=== PATIENT | male | born 1990 | race Hispanic/Latino ===

== ENCOUNTER 2018-04-06 17:02 | Emergency (ER) | payer OTHER ==
[2018-04-06 17:08] VITALS: BP 123/73; PULSE 81; RESP 16; O2SAT 97
--- NOTE | 2018-04-06 17:57 | ED PDOC ---
HPI: Dental Pain/Injury Time Seen by Provider: 04/06/18 17:10 Chief Complaint (Nursing): Dental Pain Chief Complaint (Provider): Dental Pain History Per: Patient History/Exam Limitations: no limitations Onset/Duration Of Symptoms: Other (x 3 months) Current Symptoms Are (Timing): Still Present Additional Complaint(s): 27-year-old male, with a PMHx of depression, anxiety, schizophrenia and bipolar disorder, presents to ED complaining of right upper side toothache for 3 months. Patient reports on onset of symptoms, he saw dentist and had 4 fillings placed, but never followed up again. Since fillings he has been having chronic pain that sometimes produces a headache (none now). Patient requesting a refill of ibuprofen 800 mg. No other complaints at this time. (-) dizziness, (-) visual changes, (-) fever, (-) chills, (-) cough, (-) shortness of breath, (-) ear pain, (-) throat pain (-) weakness/numbness (-) drooling. PMD: Sebastian Llamas Past Medical History Reviewed: Historical Data, Nursing Documentation, Vital Signs Vital Signs: Last Vital Signs Temp 97.9 F 04/06/18 17:05 Pulse 81 04/06/18 17:05 Resp 16 04/06/18 17:05 BP 123/73 04/06/18 17:05 Pulse Ox 97 04/06/18 17:05 - Medical History PMH: Anxiety, Bipolar Disorder, Depression, Schizophrenia - Surgical History Surgical History: No Surg Hx - Family History Family History: States: Unknown Family Hx - Social History Current smoker - smoking cessation education provided: No Alcohol: Social Drugs: Denies - Home Medications Home Medications: Ambulatory Orders Medication Instructions Recorded Ibuprofen [Motrin Tab] 800 mg PO Q8 #21 tab 04/06/18 - Allergies Allergies/Adverse Reactions: Allergies Allergy/AdvReac Type Severity Reaction Status Date / Time dust Allergy SHORTNESS Uncoded 04/06/18 17:05 OF BREATH Review of Systems ROS Statement: Except As Marked, All Systems Reviewed And Found Negative Constitutional: Negative for: Chills ENT: Positive for: Other (toothache). Negative for: Ear Pain, Throat Pain Respiratory: Negative for: Cough, Shortness of Breath Neurological: Positive for: Headache Physical Exam - Reviewed Nursing Documentation Reviewed: Yes Vital Signs Reviewed: Yes - Physical Exam Appears: Positive for: Well, Non-toxic, No Acute Distress Head Exam: Positive for: NORMOCEPHALIC Skin: Positive for: Normal Color, Warm, Dry Eye Exam: Positive for: EOMI, PERRL ENT: Positive for: Pharynx Is (clear, uvula midline), TM Is/Are (nonbulging and nonerythematous bilaterally), Other ((-) Dental Tenderness, (-) Gingival inflammation or erythema. Airway patent (-) stridor.). Negative for: Sinus Pain /Drainage, Nasal Congestion, Pharyngeal Erythema, Tonsillar Exudate, Tonsillar Swelling Neck: Positive for: Painless ROM, Supple Cardiovascular/Chest: Positive for: Regular Rate, Rhythm Respiratory: Positive for: Normal Breath Sounds (Speaking in full sentences, respirations even and nonlabored. ) Neurologic/Psych: Positive for: Alert, Oriented (x3), Gait (steady in ED) - ECG O2 Sat by Pulse Oximetry: 97 (RA) Pulse Ox Interpretation: Normal Medical Decision Making Medical Decision Making: Time: 17:31 Impression: Dental Pain, Medication Refill Plan: - Motrin Tab 800 mg PO - Re-evaluation 1824 On re-evaluation, patient reports improvement of symptoms. On exam, patient remains AAOx3, in no acute distress. On exam, neck is supple, lungs CTA, cardiac RRR, neuro exam shows no focal findings. VSS, stable for discharge. Diagnostic results d/w the patient in great detail. Dx of toothache, medication refill d/w the patient. Based on history, exam and diagnostic results plan will be for discharge and outpatient dental follow up. Advised to follow up with primary care physician/dental in 1-2 days without fail. Advised to take medication as prescribed. Return to the emergency room at any time for any new or worsening symptoms. Patient states he fully agrees with and understands discharge instructions. States that he agrees with the plan and disposition. Verbalized and repeated discharge instructions and plan. I have given the patient opportunity to ask any additional questions. Scribe Attestation: Documented by Kash Stewart, acting as a scribe for Nakita Moulton PA-C. Provider Scribe Attestation: All medical record entries made by the Scribe were at my direction and personally dictated by me. I have reviewed the chart and agree that the record accurately reflects my personal performance of the history, physical exam, medical decision making, and the department course for this patient. I have also personally directed, reviewed, and agree with the discharge instructions and disposition. Disposition - Clinical Impression Clinical Impression: Chronic dental pain, Medication refill, Headache - Patient ED Disposition Is Patient to be Admitted: No Counseled Patient/Family Regarding: Studies Performed, Diagnosis, Need For Followup, Rx Given - Disposition Disposition: Routine/Home Disposition Time: 18:29 Condition: STABLE Additional Instructions: FOLLOW UP WITH DENTIST IN 1-2 DAYS WITHOUT FAIL. RETURN TO ED WITH ANY NEW OR WORSENING SYMPTOMS. Prescriptions: Ibuprofen [Motrin Tab] 800 mg PO Q8 #21 tab Instructions: Headache, Adult, Dental Pain Forms: [facility] (Bulgarian) Print Language: GUINEAN - POA Present On Arrival: None
[2018-04-06 18:42] VITALS: TEMP 98.1
== END 2018-04-06 18:41 | disposition home or self-care (01) ==
LOC: H.ER 17:02
DX: Z76.0 Encounter for issue of repeat prescription (principal); R51 Headache; K08.89 Other specified disorders of teeth and supporting structures

== ENCOUNTER 2018-04-07 21:23 | Emergency (ER) | payer OTHER ==
[2018-04-07 21:49] VITALS: PULSE 84; RESP 18; TEMP 98; O2SAT 99
[2018-04-07] MEDS ORDERED: Bacitracin OINT 15GM TOP STA (21:54)
[2018-04-07] MEDS ORDERED: Bacitracin 500 Units/gm Oint Foilpak UD ONE (21:58)
--- NOTE | 2018-04-07 22:05 | ED PDOC ---
HPI: Head Injury Time Seen by Provider: 04/07/18 21:50 Chief Complaint (Nursing): Abnormal Skin Integrity Chief Complaint (Provider): Abnormal Skin Integrity History Per: Patient History/Exam Limitations: no limitations Onset/Duration Of Symptoms: Hrs (earlier tonight) Additional Complaint(s): Patient is a 27 y/o male with no significant past medical history presents to the ED for evaluation of a scalp wound. Patient reports that earlier tonight he was walking through a doorway when he struck his head against a metal piece of the frame. He applied a bandage and bleeding was controlled prior to arrival. Patient denies any loss of consciousnesses, headache, dizziness, and presents to ED for wound evaluation. He has no other complaints at present. PMD: Sebastian Horowitz Past Medical History Reviewed: Historical Data, Nursing Documentation, Vital Signs Vital Signs: Last Vital Signs Temp 98 F 04/07/18 21:47 Pulse 84 04/07/18 21:47 Resp 18 04/07/18 21:47 BP Pulse Ox 99 04/07/18 21:47 - Medical History PMH: Anxiety, Bipolar Disorder, Depression, Schizophrenia - Surgical History Surgical History: No Surg Hx - Family History Family History: States: Unknown Family Hx - Social History Alcohol: Social Drugs: Denies - Immunization History Hx Tetanus Toxoid Vaccination: Yes (UTD) - Home Medications Home Medications: Ambulatory Orders Medication Instructions Recorded Ibuprofen [Motrin Tab] 800 mg PO Q8 #21 tab 04/06/18 Bacitracin OINT 1 applic TP BID #1 tube 04/07/18 - Allergies Allergies/Adverse Reactions: Allergies Allergy/AdvReac Type Severity Reaction Status Date / Time dust Allergy SHORTNESS Uncoded 04/06/18 17:05 OF BREATH Review of Systems ROS Statement: Except As Marked, All Systems Reviewed And Found Negative Constitutional: Negative for: Fever Skin: Positive for: Other (scalp wound) Neurological: Negative for: Headache, Dizziness, Other (loss of consciousness ) Physical Exam - Reviewed Nursing Documentation Reviewed: Yes Vital Signs Reviewed: Yes - Physical Exam Comments: GENERALIZED APPEARANCE:Patient is awake, oriented x3, resting comfortably, in no acute distress. SKIN: Warm, dry HEAD: 1cm x 1cm superficial skin avulsion to the posterior aspect of the frontal scalp. (-)active bleeding, (-)tenderness, (-)palpably bony deformity (- ) swelling (-) hematoma EYES: (-) conjunctival pallor. ENMT: Mucous membranes moist. Airway patent (-) stridor NECK:Supple, FROM (-) tenderness, (-) stiffness, (-) lymphadenopathy. CHEST AND RESPIRATORY: (-) rales, (-) rhonchi, (-) wheezes; breath sounds equal bilaterally. Respirations even and nonlabored. HEART AND CARDIOVASCULAR: (-) irregularity; (-) murmur, (-) gallop. EXTREMITIES: (-) deformity NEURO AND PSYCH: Mental status as above. scale balancer: (-) nystagmus; Pupils EOMI and painless, (-) facial asymmetry; (-) aphasia; tongue and uvula midline. Strength symmetric. Gait: steady. Speech clear. - ECG O2 Sat by Pulse Oximetry: 99 (RA) Pulse Ox Interpretation: Normal Medical Decision Making Medical Decision Making: Time: 21:50 Initial Impression: skin avulsion of scalp Initial Plan: --wound closure not required at this time --wound irrigated with normal saline; bacitracin applied and wound dressing placed Upon provider evaluation patient is medically stable, and requires no further treatment in the ED at this time. Vitals stable. Patient will be discharged home with Rx for bacitracin. Patient educated on wound care. Counseling was provided and all questions were answered regarding diagnosis and need for follow up with PMD. There is agreement to discharge plan. Return if symptoms persist or worsen. Patient states he fully agrees with and understands discharge instructions. States that he agrees with the plan and disposition. Verbalized and repeated discharge instructions and plan. I have given the patient opportunity to ask any additional questions. Scribe Attestation: Documented by Cuba Gilliam, acting as a scribe for Nakita Moulton PA-C Provider Scribe Attestation: All medical record entries made by the Scribe were at my direction and personally dictated by me. I have reviewed the chart and agree that the record accurately reflects my personal performance of the history, physical exam, medical decision making, and the department course for this patient. I have also personally directed, reviewed, and agree with the discharge instructions and disposition. Disposition - Clinical Impression Clinical Impression: Skin avulsion, Superficial injury of scalp - Patient ED Disposition Is Patient to be Admitted: No Counseled Patient/Family Regarding: Diagnosis, Need For Followup, Rx Given - Disposition Disposition: Routine/Home Disposition Time: 21:54 Condition: STABLE Additional Instructions: FOLLOW UP WITH CLINIC IN 1-2 DAYS WITHOUT FAIL. RETURN TO ED WITH ANY NEW OR WORSENING SYMPTOMS. KEEP WOUND CLEAN AND DRY. Prescriptions: Bacitracin OINT 1 applic TP BID #1 tube Instructions: Wound Care, Minor Head Injury (DC) Forms: [facility] (Mohawk) Print Language: MALDIVIAN - POA Present On Arrival: Falls Or Trauma
[2018-04-07] MEDS ORDERED: Bacitracin 500 Units/gm Oint Foilpak UD TOP STA (22:09)
[2018-04-07 22:26] VITALS: BP 117/74
== END 2018-04-07 22:05 | disposition home or self-care (01) ==
LOC: H.ER 21:23
DX: S01.00XA Unspecified open wound of scalp, initial encounter (principal); W22.8XXA Striking against or struck by other objects, initial encounter; Y92.89 Other specified places as the place of occurrence of the external cause

== ENCOUNTER 2018-04-17 02:02 | Emergency (ER) | payer MEDICAID ==
--- NOTE | 2018-04-17 03:18 | ED PDOC ---
HPI: Dental Pain/Injury Time Seen by Provider: 04/17/18 02:58 Chief Complaint (Nursing): Dental Pain Chief Complaint (Provider): toothache History Per: Patient History/Exam Limitations: no limitations Onset/Duration Of Symptoms: Days (1 month), Waxing/Waning Current Symptoms Are (Timing): Still Present Dental: 1 - pain Additional Complaint(s): 27 y/o male presents for evaluation of right upper toothache x 1 month. Patient states the pain was so intense that tonight around 1:30 he took 6 200mg Ibuprofen tablets, and then 20 minutes later took 4 more. Patient states 10 minutes after that he took 13 aspirin 325mg tablets due to persistent pain. Patient states he was not trying to hurt himself, states he was just trying to take the pain away. Now notes nausea and abdominal discomfort. Patient with poor insight; states he has been off of his psychiatric medications for one week due to insurance issues. Denies fever, vomiting, chest pain, shortness of breath, suicidal/homicidal ideations. Past Medical History Reviewed: Historical Data, Nursing Documentation, Vital Signs Vital Signs: Last Vital Signs Temp 97.6 F 04/17/18 02:47 Pulse 79 04/17/18 02:47 Resp 16 04/17/18 02:47 BP 124/81 04/17/18 02:47 Pulse Ox 96 04/17/18 02:47 - Medical History PMH: Anxiety, Bipolar Disorder, Depression, Schizophrenia - Surgical History Surgical History: No Surg Hx - Family History Family History: States: Unknown Family Hx - Immunization History Hx Tetanus Toxoid Vaccination: Yes (UTD) - Home Medications Home Medications: Ambulatory Orders Medication Instructions Recorded Ibuprofen [Motrin Tab] 800 mg PO Q8 #21 tab 04/06/18 Bacitracin OINT 1 applic TP BID #1 tube 04/07/18 - Allergies Allergies/Adverse Reactions: Allergies Allergy/AdvReac Type Severity Reaction Status Date / Time dust Allergy SHORTNESS Uncoded 04/06/18 17:05 OF BREATH Review of Systems ROS Statement: Except As Marked, All Systems Reviewed And Found Negative ENT: Positive for: Mouth Pain Gastrointestinal: Positive for: Abdominal Pain Physical Exam - Reviewed Nursing Documentation Reviewed: Yes Vital Signs Reviewed: Yes - Physical Exam Appears: Positive for: Well, Non-toxic, No Acute Distress Head Exam: Positive for: ATRAUMATIC, NORMAL INSPECTION, NORMOCEPHALIC Skin: Positive for: Normal Color Eye Exam: Positive for: Normal appearance ENT: Positive for: TM Is/Are (Ear bud noted stuck in right EAC; no odor, drainage. (Patient states he thinks one may have gotten stuck there a few days ago as he has had muffled hearin gin that ear). Left TM and EAC clear), Other ( tender right second premolar; no gum erythema, tenderness, abscess). Negative for: Pharyngeal Erythema, Tonsillar Exudate, Tonsillar Swelling Cardiovascular/Chest: Positive for: Regular Rate, Rhythm Respiratory: Positive for: Normal Breath Sounds Gastrointestinal/Abdominal: Positive for: Normal Exam Back: Positive for: Normal Inspection Extremity: Positive for: Normal ROM Neurologic/Psych: Positive for: Alert, Oriented, Mood/Affect (bizarre, poor insight) - Laboratory Results Result Diagrams: 04/17/18 03:35 04/17/18 03:35 - ECG O2 Sat by Pulse Oximetry: 96 - Progress ED Course And Treament: labs, ekg Poison control contacted by RN; recommends supportive GI care at this time, will follow up with labs 3:30 Patient resting comfortably, no complaints currently Will repeat 2 hr salicylate level Disposition - Clinical Impression Clinical Impression: Toothache, Bizarre behavior, Overdose - Disposition Disposition Time: 06:00 Condition: STABLE Patient Signed Over To: Ricky Fortune Handoff Comments: pending repeat salicylate level, re-eval, crisis eval
[2018-04-17 04:03] LABS: EOS # 0.1 K/uL (0.0-0.7); EOS % 2.2 % (0.0-4.0); HEMOGLOBIN 13.7 g/dL (12.0-18.0); LYMPH # 2.5 K/uL (1.0-4.3); LYMPH % 51.8 % (20.0-40.0); MEAN CELL VOLUME 81.1 fl (80.0-94.0); MEAN CORPUSCULAR HEMOGLOBIN 26.7 pg (27.0-31.0); MEAN CORPUSCULAR HGB CONC 32.9 g/dL (33.0-37.0); MEAN PLATELET VOLUME 7.9 fl (7.2-11.7); MONO # 0.5 K/uL (0.0-0.8); MONO % 10.8 % (0.0-10.0); NEUT # 1.7 K/uL (1.8-7.0); NEUT % 34.2 % (50.0-75.0); NRBC % 0.1 % (0.0-0.0); RBC 5.13 Mil/uL (4.40-5.90); RED CELL DISTRIBUTION WIDTH 14.3 % (11.5-14.5); WHITE BLOOD COUNT 4.9 K/uL (4.8-10.8)
[2018-04-17 04:09] LABS: ACETAMINOPHEN < 10.0 ug/ml (10.0-30.0)
[2018-04-17 04:11] LABS: ALB/GLOB RATIO 1.3 (1.0-2.1); ALBUMIN 4.2 g/dL (3.5-5.0); ALT/SGPT 42 U/L (21-72); AST/SGOT 31 U/L (17-59); BLOOD UREA NITROGEN 16 mg/dl (9-20); GFR AFRICAN-AMERICAN > 60; GFR NON-AFRICAN AMERICAN > 60
[2018-04-17 04:12] LABS: PARTIAL THROMBOPLASTIN TIME 31.9 Seconds (25.6-37.1); PROTHROMBIN TIME 11.5 Seconds (9.8-13.1)
[2018-04-17 04:24] LABS: BARBITURATES, UR NEGATIVE (NEGATIVE); BENZODIAZEPINES, UR NEGATIVE (NEGATIVE); OPIATES, UR NEGATIVE (NEGATIVE); PHENCYCLIDINE, UR NEGATIVE (NEGATIVE)
[2018-04-17 05:54] VITALS: TEMP 98
[2018-04-17 06:27] LABS: URINE BACTERIA RARE (<OCC); URINE BILIRUBIN NEGATIVE (NEGATIVE); URINE BLOOD NEGATIVE (NEGATIVE); URINE CLARITY CLOUDY (Clear); URINE COLOR YELLOW (YELLOW); URINE GLUCOSE (UA) NEG (Normal); URINE LEUKOCYTE ESTERASE NEG Leu/uL (Negative); URINE PROTEIN NEGATIVE (NEGATIVE); URINE UROBILINOGEN 0.2-1.0 mg/dL (0.2-1.0)
--- NOTE | 2018-04-17 06:30 | ED PDOC ---
- Laboratory Results Result Diagrams: 04/17/18 03:35 04/17/18 03:35 - ECG O2 Sat by Pulse Oximetry: 99 Pulse Ox Interpretation: Normal - Progress ED Course And Treament: 0600 Continuation of care by this provider in conjunction with [facility]. I have reviewed all notations and reviewed patient and agree with management. 630 Salicylate level is increasing, however patient remains asymptomatic at this time- no nausea, vomiting, tinnitus, etc. Will order 2 hour draw for repeat salicylate 700 Will endorse case to Dr. Cage. Disposition - Clinical Impression Clinical Impression: Toothache, Bizarre behavior, Overdose, Foreign body in right ear - POA Present On Arrival: None - Disposition Disposition: Transfer of Care Disposition Time: 07:00 Condition: STABLE Forms: [facility] (Mozambican) Patient Signed Over To: Shawna Cage Handoff Comments: pending repeat salicylate level and crisis eval
--- NOTE | 2018-04-17 07:10 | ED PDOC ---
- Laboratory Results Result Diagrams: 04/17/18 03:35 04/17/18 03:35 - ECG O2 Sat by Pulse Oximetry: 99 Medical Decision Making Medical Decision Making: Received patient from Dr. Fortune. Patient is pending repeat salicylate level for medical clearance before crisis evaluation. 5.00p - patient still pending [facility] [place] Disposition - Clinical Impression Clinical Impression: Toothache, Bizarre behavior, Overdose, Foreign body in right ear - POA Present On Arrival: None - Disposition Disposition: Transfer of Care Disposition Time: 17:00 Condition: STABLE Forms: [facility] (Occitan) Patient Signed Over To: Saad Connell
[2018-04-17 16:26] VITALS: RESP 20
[2018-04-17 17:00] VITALS: O2SAT 99
--- NOTE | 2018-04-17 18:52 | ED PDOC ---
- Laboratory Results Result Diagrams: 04/17/18 03:35 04/17/18 03:35 - ECG O2 Sat by Pulse Oximetry: 99 Disposition - Clinical Impression Clinical Impression: Toothache, Bizarre behavior, Overdose, Foreign body in right ear - POA Present On Arrival: None - Disposition Disposition: Transfer of Care Disposition Time: 18:51 Condition: FAIR Forms: [facility] (Honduran) Patient Signed Over To: Ricky Fortune
--- NOTE | 2018-04-17 21:56 | ED PDOC ---
- Laboratory Results Result Diagrams: 04/17/18 03:35 04/17/18 03:35 - ECG O2 Sat by Pulse Oximetry: 99 Medical Decision Making Medical Decision MakinPM Patient endorsed to me by Dr. Connell pending decision from [facility] [place] 9PM Patient medically cleared with down-trending salicylates. 10PM Patient cleared by [facility], does not meet requirements for admission. Will discharge home. Advised to followup with psychiatrist and dentist as soon as possible. Disposition - Clinical Impression Clinical Impression: Toothache, Bizarre behavior, Overdose, Foreign body in right ear - POA Present On Arrival: None - Disposition Disposition: Routine/Home Disposition Time: 21:58 Condition: STABLE Additional Instructions: PLEASE SEE YOUR DENTIST AND PSYCHIATRIST TOMORROW. Instructions: Schizophrenia (DC), Dental Pain (DC) Forms: [facility] (Bahraini)
[2018-04-17 22:43] VITALS: BP 129/78; PULSE 82
--- NOTE | 2018-04-18 09:22 | RAD ---
Date of service: 04/17/2018 HISTORY: AMS COMPARISON: No prior. FINDINGS: LUNGS: No active pulmonary disease. PLEURA: No significant pleural effusion identified, no pneumothorax apparent. CARDIOVASCULAR: Normal. OSSEOUS STRUCTURES: No significant abnormalities. VISUALIZED UPPER ABDOMEN: Normal. OTHER FINDINGS: None. IMPRESSION: No active disease.
--- NOTE | 2018-04-18 16:38 | CARD ---
APPROVED REPORT Date of service: 04/17/2018 EKG Measurement Heart [id number] <Conclusion> Normal sinus rhythm with sinus arrhythmia Early repolarization Normal ECG
== END 2018-04-17 22:43 | disposition home or self-care (01) ==
LOC: H.ER 02:02
DX: K08.89 Other specified disorders of teeth and supporting structures (principal); T16.1XXA Foreign body in right ear, initial encounter; Z86.59 Personal history of other mental and behavioral disorders
CPT/HCPCS: 71045; 80053; 81003; 82948; 85025; 85610; 85730; 93005; 99285; G0480

== ENCOUNTER 2018-04-20 21:24 | Emergency (ER) | payer MEDICAID ==
[2018-04-20 21:33] VITALS: BP 128/72; PULSE 89; RESP 16; TEMP 98.4; O2SAT 98
--- NOTE | 2018-04-20 23:10 | ED PDOC ---
HPI: Dental Pain/Injury Time Seen by Provider: 04/20/18 21:48 Chief Complaint (Nursing): Dental Pain History Per: Patient History/Exam Limitations: no limitations Additional Complaint(s): 27-year-old male complaining of dental pain to the right upper 1st molar for the past 3 days. States that he has been taking Tylenol Extra Strength for pain and Motrin 200 mg with no improvement. Denies any fever, chills, headache, cough , rash, ear pain. Has no other complaints at this time. States that he was given ibuprofen 800 mg in the past which helped for his pain. States that he has not followed up with a dentist as of yet. Past Medical History Vital Signs: Last Vital Signs Temp 98.4 F 04/20/18 21:33 Pulse 89 04/20/18 21:33 Resp 16 04/20/18 21:33 BP 128/72 04/20/18 21:33 Pulse Ox 98 04/20/18 21:33 - Medical History PMH: Anxiety, Bipolar Disorder, Depression, Schizophrenia Denies: Diabetes, Hepatitis, HIV, HTN, Seizures, Sexually Transmitted Disease - Family History Family History: States: Unknown Family Hx - Immunization History Hx Tetanus Toxoid Vaccination: Yes (UTD) - Home Medications Home Medications: Ambulatory Orders Medication Instructions Recorded Ibuprofen [Motrin Tab] 800 mg PO TID PRN #20 tab 04/20/18 - Allergies Allergies/Adverse Reactions: Allergies Allergy/AdvReac Type Severity Reaction Status Date / Time dust Allergy SHORTNESS Uncoded 04/06/18 17:05 OF BREATH Review of Systems Constitutional: Negative for: Fever, Malaise ENT: Positive for: Other (dental pain). Negative for: Ear Pain, Nose Discharge , Mouth Swelling, Throat Pain Respiratory: Negative for: Cough, Shortness of Breath Musculoskeletal: Negative for: Neck Pain, Back Pain Skin: Negative for: Rash, Lesions Physical Exam - Physical Exam Appears: Positive for: Well, Non-toxic, In Acute Distress (mild painful distress ) Head Exam: Positive for: ATRAUMATIC, NORMAL INSPECTION, NORMOCEPHALIC Skin: Positive for: Normal Color, Warm, DRY Eye Exam: Positive for: EOMI, Normal appearance, PERRL ENT: Positive for: Normal ENT Inspection, TM Is/Are (without erythema), Other ( dentition all intact without edema or erythema to the gums, + mild tenderness to percussion to the R upper 1st molar). Negative for: Tonsillar Exudate, Tonsillar Swelling Neck: Positive for: Normal, Painless ROM Cardiovascular/Chest: Positive for: Regular Rate, Rhythm Respiratory: Positive for: CNT, Normal Breath Sounds Neurologic/Psych: Positive for: Alert, channel man II-XII, Oriented (x3). Negative for : Motor/Sensory Deficits, Facial Droop - ECG O2 Sat by Pulse Oximetry: 98 Medical Decision Making Medical Decision Making: Plan : - motrin 600 mg po Advised to follow up with dentistt in 1-2 days without fail. Advised to take medication as prescribed. Return to the emergency room at any time for any new or worsening symptoms. Patient states he fully agrees with and understands discharge instructions. States that he agrees with the plan and disposition. Verbalized and repeated discharge instructions and plan. I have given the patient opportunity to ask any additional questions. Disposition - Clinical Impression Clinical Impression: Toothache - Patient ED Disposition Is Patient to be Admitted: No Counseled Patient/Family Regarding: Diagnosis, Need For Followup, Rx Given - Disposition Referrals: [facility] [Outside] Disposition: Routine/Home Disposition Time: 23:15 Condition: STABLE Additional Instructions: Thank you for letting us take care of you today. You were treated for toothache. The emergency medical care you received today was directed at your acute symptoms. If you were prescribed any medication, please fill it and take as directed. It may take several days for your symptoms to resolve. Return to the Emergency Department if your symptoms worsen, do not improve, or if you have any other problems. Please call one of the physicians/clinics you have been referred to that are listed on the Patient Visit Information form that is included in your discharge packet. Bring any paperwork you were given at discharge with you along with any medications you are taking to your follow up visit. Our treatment cannot replace ongoing medical care by a primary care provider (PCP) outside of the emergency department. Thank you for allowing the [facility] team to be part of your care today. Prescriptions: Ibuprofen [Motrin Tab] 800 mg PO TID PRN #20 tab PRN Reason: Pain, Moderate (4-7) Instructions: Dental Pain (DC) - PA / RECRUITING INTERN / Resident Statement MD/DO has reviewed & agrees with the documentation as recorded.
== END 2018-04-20 23:18 | disposition home or self-care (01) ==
LOC: H.ER 21:24
DX: K08.89 Other specified disorders of teeth and supporting structures (principal); F20.9 Schizophrenia, unspecified

== ENCOUNTER 2018-04-27 20:20 | Emergency (ER) | payer OTHER ==
--- NOTE | 2018-04-27 21:16 | ED PDOC ---
HPI: Psych/Substance Abuse Time Seen by Provider: 04/27/18 20:39 Chief Complaint (Nursing): Psychiatric Evaluation Chief Complaint (Provider): Psychiatric Evaluation History Per: Patient History/Exam Limitations: no limitations Onset/Duration Of Symptoms: Hrs Associated Symptoms: denies: Suicidal Thoughts Additional Complaint(s): Reggie Brennan is a 27 year old male with a past medical history of depression, schizophrenia, bipolar disorder and anxiety who is presenting to the ED for evaluation after visiting a halfway and being advised to come to the ED. Patient states that he ran out of his medications and needs a refill for Zoloft and Seroquel. He denies any feeling anxious, depressed, reports no suicidal or homicidal ideation. Patient offers no other medical complaints at this time. Past Medical History Vital Signs: Last Vital Signs Temp 98 F 04/27/18 20:27 Pulse 94 H 04/27/18 20:27 Resp 20 04/27/18 20:27 BP 115/73 04/27/18 20:27 Pulse Ox 97 04/27/18 20:27 - Medical History PMH: Anxiety, Bipolar Disorder, Depression, Schizophrenia Denies: Diabetes, Hepatitis, HIV, HTN, Seizures, Sexually Transmitted Disease - Surgical History Surgical History: No Surg Hx - Family History Family History: States: Unknown Family Hx - Social History Current smoker - smoking cessation education provided: No Alcohol: None Drugs: Denies - Immunization History Hx Tetanus Toxoid Vaccination: Yes (UTD) - Home Medications Home Medications: Ambulatory Orders Medication Instructions Recorded Ibuprofen [Motrin Tab] 800 mg PO TID PRN #20 tab 04/20/18 - Allergies Allergies/Adverse Reactions: Allergies Allergy/AdvReac Type Severity Reaction Status Date / Time dust Allergy SHORTNESS Uncoded 04/27/18 20:27 OF BREATH Review of Systems ROS Statement: Except As Marked, All Systems Reviewed And Found Negative Psych: Negative for: Suicidal ideation, Other (homicidal ideation) Physical Exam - Reviewed Nursing Documentation Reviewed: Yes Vital Signs Reviewed: Yes - Physical Exam Comments: GENERAL APPEARANCE: Patient is awake, alert, oriented x 3, in no acute distress. SKIN:Warm, dry; (-) cyanosis. HEAD: (-) scalp swelling, (-) scalp tenderness. EYES: (-) conjunctival pallor, (-) scleral icterus, (-) nystagmus. ENMT: Mucous membranes moist. Airway patent: (-) stridor. NECK: (-) tenderness, (-) stiffness, (-) lymphadenopathy. CHEST AND RESPIRATORY: (-) rales, (-) rhonchi, (-) wheezes; breath sounds equal bilaterally. HEART AND CARDIOVASCULAR: (-) irregularity; (-) murmur, (-) gallop. ABDOMEN AND GI: Soft; (-) tenderness. EXTREMITIES: (-) deformity. NEURO AND PSYCH: Mental status as above, (-) apparent hallucinations or delusions. Affect: normal. Memory: normal. proofsheet corrector: Pupils equal and reactive; (-) facial asymmetry; tongue and uvula midline. Strength: Symmetric. - ECG O2 Sat by Pulse Oximetry: 97 (RA) Pulse Ox Interpretation: Normal Medical Decision Making Medical Decision Making: Time: 20:30 Patient was given a list of referrals for psychiatric evaluation. Advised that he can obtain refills for Zoloft and Seroquel there. Patient is stable for discharge. Advised to follow up with psychiatric referrals in 1-2 days without fail. Return to the emergency room at any time for any new or worsening symptoms. Patient states he fully agrees with and understands discharge instructions. States that he agrees with the plan and disposition. Verbalized and repeated discharge instructions and plan. I have given the patient opportunity to ask any additional questions. Scribe Attestation: Documented by Morenita Hayes, acting as a scribe for Lorie De Jesus PA-C. Provider Scribe Attestation: All medical record entries made by the Scribe were at my direction and personally dictated by me. I have reviewed the chart and agree that the record accurately reflects my personal performance of the history, physical exam, medical decision making, and the department course for this patient. I have also personally directed, reviewed, and agree with the discharge instructions and disposition. Disposition - Clinical Impression Clinical Impression: Encounter for psychological evaluation - Patient ED Disposition Is Patient to be Admitted: No - Disposition Disposition: Routine/Home Disposition Time: 21:00 Condition: STABLE Additional Instructions: Patient is safe and stable for outpatient follow up. See separate list of referrals for outpatient psychiatric care. 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
[2018-04-27 22:03] VITALS: BP 118/76; PULSE 90; RESP 18; TEMP 98.2
[2018-04-28 04:22] VITALS: O2SAT 97
== END 2018-04-27 21:20 | disposition home or self-care (01) ==
LOC: H.ER 20:20
DX: Z00.8 Encounter for other general examination (principal); Z86.59 Personal history of other mental and behavioral disorders; Z76.0 Encounter for issue of repeat prescription

== ENCOUNTER 2018-05-19 16:09 | Emergency (ER) | payer MEDICAID ==
[2018-05-19 16:15] VITALS: RESP 18; TEMP 98; O2SAT 100
--- NOTE | 2018-05-19 16:52 | ED PDOC ---
HPI: Headache Time Seen by Provider: 05/19/18 16:20 Chief Complaint (Nursing): Headache Chief Complaint (Provider): ROWLAND History Per: Patient History/Exam Limitations: no limitations Additional Complaint(s): Pt reports R sided ROWLAND X 1 day, has had same ROWLAND "plenty of times", usually take Ibuprofen 600 mg that relieves pain but did not take today. Denies fever, nausea, vomiting, visual changes, paresthesias, weakness, sudden onset of pain. Past Medical History Reviewed: Nursing Documentation, Vital Signs Vital Signs: Last Vital Signs Temp 98 F 05/19/18 16:13 Pulse 86 05/19/18 16:13 Resp 18 05/19/18 16:13 BP 115/72 05/19/18 16:13 Pulse Ox 100 05/19/18 16:13 - Medical History PMH: Anxiety, Bipolar Disorder, Depression, Schizophrenia Denies: Diabetes, Hepatitis, HIV, HTN, Seizures, Sexually Transmitted Disease - Family History Family History: States: Unknown Family Hx - Social History Current smoker - smoking cessation education provided: No Alcohol: None - Immunization History Hx Tetanus Toxoid Vaccination: Yes (UTD) - Home Medications Home Medications: Ambulatory Orders Medication Instructions Recorded Ibuprofen [Motrin Tab] 800 mg PO TID PRN #20 tab 04/20/18 oxyCODONE/Acetaminophen [Percocet 1 tab PO Q6H PRN #15 tab 05/19/18 5/325 mg Tab] - Allergies Allergies/Adverse Reactions: Allergies Allergy/AdvReac Type Severity Reaction Status Date / Time dust Allergy SHORTNESS Uncoded 05/19/18 16:13 OF BREATH Review of Systems Constitutional: Negative for: Fever, Chills Eyes: Negative for: Vision Change Cardiovascular: Negative for: Chest Pain Respiratory: Negative for: Cough, Shortness of Breath Gastrointestinal: Negative for: Nausea, Vomiting Musculoskeletal: Negative for: Neck Pain Skin: Negative for: Rash, Lesions Neurological: Positive for: Headache. Negative for: Weakness, Numbness, Incoordination, Change in Speech, Confusion, Seizures, Altered Mental Status, Dizziness Physical Exam - Reviewed Nursing Documentation Reviewed: Yes Vital Signs Reviewed: Yes - Physical Exam Appears: Positive for: Well, No Acute Distress Head Exam: Positive for: ATRAUMATIC, NORMAL INSPECTION Skin: Positive for: Normal Color, Warm, Dry Eye Exam: Positive for: Normal appearance, EOMI, PERRL Neck: Positive for: Normal, Painless ROM, Supple Cardiovascular/Chest: Positive for: Regular Rate, Rhythm Respiratory: Positive for: Normal Breath Sounds Neurologic/Psych: Positive for: Alert, family partner II-XII, Oriented. Negative for: Motor/Sensory Deficits, Aphasia, Facial Droop - ECG O2 Sat by Pulse Oximetry: 100 Medical Decision Making Medical Decision Makin yo male with recurrent ROWLAND. - CT head - [facility] Accession No. : [id number] Patient Name / ID : MADDY Palacio / [id number] Exam Date : 05/19/2018 16:55:26 ( Approved ) Study Comment : Sex / Age : M / 27Y Creator : Nirmal Naranjo MD Dictator : Nirmal Naranjo MD Rubber Goods Inspector : Live Out Nanny : Nirmal Naranjo MD Approver2 : Report Date : 05/19/2018 17:07:27 My Comment : Date of service: 05/19/2018 PROCEDURE: CT HEAD WITHOUT CONTRAST. HISTORY: ROWLAND COMPARISON: None available. TECHNIQUE: Axial computed tomography images were obtained through the head/brain without intravenous contrast. Radiation dose: Total exam DLP = 790.4 mGy-cm. This CT exam was performed using one or more of the following dose reduction techniques: Automated exposure control, adjustment of the mA and/or kV according to patient size, and/or use of iterative reconstruction technique. FINDINGS: HEMORRHAGE: No intracranial hemorrhage. BRAIN: No mass effect or edema. No atrophy or chronic microvascular ischemic changes. VENTRICLES: Unremarkable. No hydrocephalus. CALVARIUM: Unremarkable. PARANASAL SINUSES: High-density expansile structure in the right maxillary sinus eroding the medial wall and causing leftward nasal septal deviation. MASTOID AIR CELLS: Unremarkable as visualized. No inflammatory changes. OTHER FINDINGS: None. IMPRESSION: No acute intracranial hemorrhage. High-density expansile structure in the right maxillary sinus eroding the medial wall and causing leftward nasal septal deviation. Findings are nonspecific and may represent chronic sinusitis with sinonasal tumor not excluded. 17:[address] Verdugo, patient to be seen in his office tomorrow @ 9 AM for possible biopsy. Dental pain needs to be referred to Dentist. Pt states he was evaluated by Dentist 2 weeks ago in [place], was referred to [facility] for wisdom teeth removal/root canal but did not follow-up. Stressed importance of follow-up to patient, understands plan for Dentist and Dr. Verdugo tomorrow without fail. Disposition - Clinical Impression Clinical Impression: Acute headache, Toothache, Benign tumor of maxillary sinus - Disposition Referrals: Frank Verdugo MD [Staff Provider] - Disposition: Routine/Home Disposition Time: 18:00 Condition: STABLE Additional Instructions: GO TO DR. VERDUGO'S OFFICE TOMORROW @ 9 AM WITHOUT FAIL. NOTIFY MAGNETIC PROSPECTING SUPERVISOR THAT YOU WERE SENT FROM THE EMERGENCY DEPARTMENT. ALSO FOLLOW-UP WITH DENTAL SURGEON @ [facility] ADVISED. Prescriptions: oxyCODONE/Acetaminophen [Percocet 5/325 mg Tab] 1 tab PO Q6H PRN #15 tab PRN Reason: Pain, Severe (8-10) Instructions: Acute Headache (ED) Forms: [employer] (Thai)
--- NOTE | 2018-05-19 17:09 | CT ---
Date of service: 05/19/2018 PROCEDURE: CT HEAD WITHOUT CONTRAST. HISTORY: ROWLAND COMPARISON: None available. TECHNIQUE: Axial computed tomography images were obtained through the head/brain without intravenous contrast. Radiation dose: Total exam DLP = 790.4 mGy-cm. This CT exam was performed using one or more of the following dose reduction techniques: Automated exposure control, adjustment of the mA and/or kV according to patient size, and/or use of iterative reconstruction technique. FINDINGS: HEMORRHAGE: No intracranial hemorrhage. BRAIN: No mass effect or edema. No atrophy or chronic microvascular ischemic changes. VENTRICLES: Unremarkable. No hydrocephalus. CALVARIUM: Unremarkable. PARANASAL SINUSES: High-density expansile structure in the right maxillary sinus eroding the medial wall and causing leftward nasal septal deviation. MASTOID AIR CELLS: Unremarkable as visualized. No inflammatory changes. OTHER FINDINGS: None. IMPRESSION: No acute intracranial hemorrhage. High-density expansile structure in the right maxillary sinus eroding the medial wall and causing leftward nasal septal deviation. Findings are nonspecific and may represent chronic sinusitis with sinonasal tumor not excluded.
[2018-05-19] MEDS ORDERED: Oxycodone/Acetaminophen 5/325 mg Tab PO STA (18:01)
[2018-05-19 18:25] VITALS: BP 112/70; PULSE 82
== END 2018-05-19 18:22 | disposition home or self-care (01) ==
LOC: H.ER 16:09
DX: R51 Headache (principal); K08.89 Other specified disorders of teeth and supporting structures; D14.0 Benign neoplasm of middle ear, nasal cavity and accessory sinuses; F20.9 Schizophrenia, unspecified; F31.9 Bipolar disorder, unspecified; F41.9 Anxiety disorder, unspecified; J34.2 Deviated nasal septum

== ENCOUNTER 2018-07-28 16:13 | Emergency (ER) | payer MEDICAID, OTHER ==
[2018-07-28 16:37] VITALS: BP 118/60; PULSE 74; RESP 18; TEMP 97.8; O2SAT 99
== END 2018-07-28 17:18 | disposition left against medical advice (07) ==
LOC: H.ER 16:13
DX: Z02.89 Encounter for other administrative examinations (principal)

== ENCOUNTER 2018-08-10 10:24 | Emergency (ER) | payer MEDICAID ==
[2018-08-10 10:28] VITALS: BP 123/69; PULSE 90; RESP 19; TEMP 97.8; O2SAT 97
--- NOTE | 2018-08-10 10:46 | ED PDOC ---
HPI: Dental Pain/Injury Time Seen by Provider: 08/10/18 10:37 Chief Complaint (Provider): Dental Pain History Per: Patient History/Exam Limitations: no limitations Onset/Duration Of Symptoms: Days (x7) Current Symptoms Are (Timing): Still Present Additional Complaint(s): 28 y/o male with a PMHx of psychiatric disorders and a questionable sinus mass vs. infection presents to the ED for evaluation of right upper tooth ache, onset 1 week. Patient reports he has not followed up with an ENT specialist. Patient states he has not been to a dentist. Denies fever, drainage and injury. PMD: none Past Medical History Reviewed: Historical Data, Nursing Documentation, Vital Signs Vital Signs: Last Vital Signs Temp 97.8 F 08/10/18 10:28 Pulse 90 08/10/18 10:28 Resp 19 08/10/18 10:28 BP 123/69 08/10/18 10:28 Pulse Ox 97 08/10/18 10:28 - Medical History PMH: Anxiety, Bipolar Disorder, Depression, Schizophrenia Denies: Diabetes, Hepatitis, HIV, HTN, Seizures, Sexually Transmitted Disease - Surgical History Surgical History: No Surg Hx - Family History Family History: States: Unknown Family Hx - Immunization History Hx Tetanus Toxoid Vaccination: Yes (UTD) - Home Medications Home Medications: Ambulatory Orders Medication Instructions Recorded Ibuprofen [Motrin Tab] 800 mg PO TID PRN #20 tab 04/20/18 oxyCODONE/Acetaminophen [Percocet 1 tab PO Q6H PRN #15 tab 05/19/18 5/325 mg Tab] Penicillin VK [Penicillin VK Tab] 500 mg PO Q6 #28 tab 08/10/18 traMADol [Ultram] 50 mg PO Q8 #10 tab 08/10/18 - Allergies Allergies/Adverse Reactions: Allergies Allergy/AdvReac Type Severity Reaction Status Date / Time dust Allergy SHORTNESS Uncoded 05/19/18 16:13 OF BREATH Review of Systems ROS Statement: Except As Marked, All Systems Reviewed And Found Negative Constitutional: Negative for: Fever ENT: Positive for: Mouth Pain (Dental Pain) Physical Exam - Reviewed Nursing Documentation Reviewed: Yes Vital Signs Reviewed: Yes - Physical Exam Appears: Positive for: No Acute Distress Head Exam: Positive for: ATRAUMATIC, NORMAL INSPECTION (No sinus tenderness), NORMOCEPHALIC Skin: Positive for: Normal Color, Warm, Dry Eye Exam: Positive for: Normal appearance, EOMI, PERRL ENT: Positive for: Other (No dental caries or abscess noted) Neck: Positive for: Normal Cardiovascular/Chest: Positive for: Regular Rate, Rhythm. Negative for: Murmur Respiratory: Positive for: Normal Breath Sounds. Negative for: Respiratory Distress Extremity: Positive for: Normal ROM. Negative for: Deformity Neurologic/Psych: Positive for: Alert, Oriented. Negative for: Motor/Sensory Deficits - ECG O2 Sat by Pulse Oximetry: 97 (RA) Pulse Ox Interpretation: Normal Medical Decision Making Medical Decision Making: Time: 1043 Plan: -- Penicillin VK 500 mg PO -- Ultram 50 mg PO -- Will refer to Dentist as well as ENT for follow up on CT. Scribe Attestation: Documented by Oskar Tinoco, acting as a scribe Gustavo Connell MD. Provider Scribe Attestation: All medical record entries made by the Scribe were at my direction and personally dictated by me. I have reviewed the chart and agree that the record accurately reflects my personal performance of the history, physical exam, me dical decision making, and the department course for this patient. I have also personally directed, reviewed, and agree with the discharge instructions and disposition. Disposition - Clinical Impression Clinical Impression: Toothache, Maxillary sinus mass Counseled Patient/Family Regarding: Diagnosis, Need For Followup, Rx Given - Disposition Referrals: Radu Gunter DDS [Staff Provider] - Frank Kowalski MD [Staff Provider] - Disposition: Routine/Home Disposition Time: 10:49 Condition: STABLE Additional Instructions: Follow up with ENT for possible maxillary tumor found on CT on previous visit. Prescriptions: Penicillin VK [Penicillin VK Tab] 500 mg PO Q6 #28 tab traMADol [Ultram] 50 mg PO Q8 #10 tab Instructions: Dental Pain
== END 2018-08-10 11:37 | disposition home or self-care (01) ==
LOC: H.ER 10:24
DX: Z86.59 Personal history of other mental and behavioral disorders (principal)